=== PATIENT | female | born 1950 | race Caucasian/White ===

== ENCOUNTER → 2016-09-05 | Outpatient (CLI) | payer OTHER ==
[~2016-09-05] MED LIST: AZAT50TA9 PO; CALC500T47 PO; CARI250T9 PO; CHOL10002 PO; HYDR-2440 PO; HYDR200T5 PO; INSU100I17 SC; INSU100I29 SC; LACT1CAP43 PO; MONT10TA6 PO; MULT-26 PO; NEBI5TAB2 PO; NITR0.4T8 SL; NITR50CA11 PO; OMEP20CA9 PO; PREG150C PO; ROSU10TA PO; TRAM50TA2 PO; VALS320T2 PO; ZOLP10TA PO
== END | disposition home or self-care (01) ==
LOC: STAR 10:34
PROVIDERS: ATTEND Orthopaedic Surgery
DX: Z02.9 Encounter for administrative examinations, unspecified (principal)

== ENCOUNTER → 2017-03-06 | Outpatient (CLI) | payer OTHER ==
[~2017-03-06] MED LIST changes: -CALC500T47 PO; +CALC500T51 PO; +NITR0.4T28 SL; -NITR0.4T8 SL
== END | disposition home or self-care (01) ==
LOC: CFH 12:34
PROVIDERS: ATTEND Internal Medicine Cardiovascular Disease
DX: I08.1 Rheumatic disorders of both mitral and tricuspid valves (principal); I10 Essential (primary) hypertension
CPT/HCPCS: 93306

== ENCOUNTER → 2017-05-17 | Outpatient (CLI) | payer OTHER | END | disposition home or self-care (01) | LOC: CFH 12:27 | PROVIDERS: ATTEND Internal Medicine Cardiovascular Disease | DX: I25.10 Atherosclerotic heart disease of native coronary artery without angina pectoris (principal); G89.29 Other chronic pain; Z82.49 Family history of ischemic heart disease and other diseases of the circulatory system | CPT/HCPCS: 75571 ==

== ENCOUNTER 2019-09-16 10:08 | Day surgery (SDC) | payer OTHER ==
[~2019-09-16] VITALS: Ht 160 cm; Wt 70.5 kg
[~2019-09-16 10:08] MED LIST changes: +CHOL200078 PO; +DULO30CA2 PO; +INSU100I43 SC; +IRBE150T9 PO; -NEBI5TAB2 PO; +NEBI5TAB3 PO; -ROSU10TA PO; +ROSU10TA2 PO
[2019-09-16] MEDS ORDERED: LACTATED RINGERS 1,000 ML IV SCH (11:18)
[2019-09-16] MEDS ORDERED: CHLORHEXIDINE 15 ML UDC MM ONE (11:30)
[2019-09-16 11:42] LABS: ALANINE AMINOTRANSFERASE 81 U/L (12-78); ALBUMIN 2.5 g/dL (3.4-5.0); ANION GAP 7 mmol/L (5-15); CALCIUM 9.2 mg/dL (8.5-10.1); CHLORIDE 97 mmol/L (98-107)
[2019-09-16 11:44] LABS: ALKALINE PHOSPHATASE 518 U/L (45-117)
[2019-09-16 12:01] LABS: CREATININE 0.78 mg/dL (0.55-1.02)
[2019-09-16 12:03] LABS: TOTAL PROTEIN 6.7 g/dL (6.4-8.2)
[2019-09-16 12:06] LABS: BILIRUBIN,TOTAL 24.4 mg/dL (0.2-1.0)
[2019-09-16] MEDS ORDERED: SUCCINYLCHOLINE 20 MG/ML, 10ML ONE (13:33)
[2019-09-16] MEDS ORDERED: GLYCOPYRROLATE 0.2MG/1ML, 5ML ONE (13:33)
[2019-09-16] MEDS ORDERED: ROCURONIUM 10 MG/ML,10ML ONE (13:33)
[2019-09-16] MEDS ORDERED: PROPOFOL 10 MG/ML, 20ML ONE (13:33)
[2019-09-16] MEDS ORDERED: EPHEDRINE 50 MG/ML, 1ML ONE (13:33)
[2019-09-16] MEDS ORDERED: ONDANSETRON 2MG/ML, 2ML IV PRN (14:00)
[2019-09-16] MEDS ORDERED: ACETAMINOPHEN 325 MG TABLET PO PRN (14:00)
[2019-09-16] MEDS ORDERED: LORazepam 2 MG/ML, 1ML IVPush PRN (14:00)
[2019-09-16] MEDS ORDERED: hydrALAzine 20 MG/ML, 1ML IV PRN (14:00)
[2019-09-16] MEDS ORDERED: KETOROLAC 30 MG/1 ML IV PRN (14:00)
[2019-09-16] MEDS ORDERED: LABETALOL 5MG/ML, 20ML IV PRN (14:00)
[2019-09-16] MEDS ORDERED: OXYcodone 5 MG/5 ML ORAL.SOL UDC PO PRN (14:00)
[2019-09-16] MEDS ORDERED: FENTANYL PF 100 MCG/2ML IV PRN (14:00)
[2019-09-16] MEDS ORDERED: OMNIPAQUE 350 MG/ML, 50 ML BOTTLE ONE (15:02)
== END 2019-09-16 16:45 | disposition home or self-care (01) ==
LOC: OUT 10:08 → EDSTATUS 13:45 → OUT 16:45
PROVIDERS: ATTEND Internal Medicine
DX: K83.1 Obstruction of bile duct (principal); K86.89 Other specified diseases of pancreas; C25.0 Malignant neoplasm of head of pancreas; E11.9 Type 2 diabetes mellitus without complications; I10 Essential (primary) hypertension; E78.5 Hyperlipidemia, unspecified; M32.9 Systemic lupus erythematosus, unspecified; Z79.4 Long term (current) use of insulin; Z79.899 Other long term (current) drug therapy; Z87.891 Personal history of nicotine dependence; Z88.2 Allergy status to sulfonamides; Z88.5 Allergy status to narcotic agent; Z88.8 Allergy status to other drugs, medicaments and biological substances; Z90.11 Acquired absence of right breast and nipple; Z90.710 Acquired absence of both cervix and uterus; Z96.653 Presence of artificial knee joint, bilateral; Z98.1 Arthrodesis status; Z98.890 Other specified postprocedural states
CPT/HCPCS: 43242; 43274; 74328; 80053; 82962; 88112; 88172; 88173; 88307; 93005; C1769; C1894; C2625; J0330; J2704; J7120; Q9967

== ENCOUNTER 2019-10-01 16:31 | Outpatient (CLI) | payer OTHER ==
[2019-10-01] MEDS ORDERED: OMNIPAQUE 350 MG/ML, 100ML BOTTLE ONE (17:10)
[2019-10-02] MEDS ORDERED: LOVA10TA PO (13:56)
== END 2019-10-01 23:59 | disposition home or self-care (01) ==
LOC: RAD 16:31
PROVIDERS: ATTEND Surgery
DX: C25.0 Malignant neoplasm of head of pancreas (principal); R91.8 Other nonspecific abnormal finding of lung field
CPT/HCPCS: 74170; Q9967

== ENCOUNTER 2019-10-02 13:08 | Outpatient (CLI) | payer OTHER ==
[2019-10-02] MEDS ORDERED: LOVA10TA PO (13:56)
[2019-10-02 14:21] LABS: ALANINE AMINOTRANSFERASE 52 U/L (12-78); ALBUMIN 2.2 g/dL (3.4-5.0); ANION GAP 6 mmol/L (5-15); CALCIUM 9.2 mg/dL (8.5-10.1); CHLORIDE 95 mmol/L (98-107); CREATININE 0.88 mg/dL (0.55-1.02)
[2019-10-02 14:24] LABS: ALKALINE PHOSPHATASE 625 U/L (45-117); BILIRUBIN,TOTAL 12.5 mg/dL (0.2-1.0); TOTAL PROTEIN 6.6 g/dL (6.4-8.2)
== END 2019-10-02 23:59 | disposition home or self-care (01) ==
LOC: STAR 13:08
PROVIDERS: ATTEND Internal Medicine
DX: Z01.818 Encounter for other preprocedural examination (principal); C25.9 Malignant neoplasm of pancreas, unspecified
CPT/HCPCS: 36415; 80053; U0001

== ENCOUNTER 2019-10-07 09:10 | Day surgery (SDC) | payer OTHER ==
[~2019-10-07] VITALS: Ht 154.9 cm; Wt 70.9 kg
[~2019-10-07 09:10] MED LIST changes: +LOVA10TA PO; +PROPOFOL 10 MG/ML, 20ML ONE; +ROCURONIUM 10 MG/ML,10ML ONE; +SUCCINYLCHOLINE 20 MG/ML, 10ML ONE
[2019-10-07 09:26] VITALS: BP 150/85
[2019-10-07] MEDS ORDERED: LACTATED RINGERS 1,000 ML IV SCH (09:37)
[2019-10-07] MEDS ORDERED: CHLORHEXIDINE 15 ML UDC ONE (09:42)
[2019-10-07] MEDS ORDERED: PROPOFOL 50 ML ONE (11:38)
[2019-10-07] MEDS ORDERED: FENTANYL PF 100 MCG/2ML ONE (11:38)
[2019-10-07] MEDS ORDERED: GLUCAGON 1 MG ONE (11:57)
[2019-10-07] MEDS ORDERED: ONDANSETRON ODT 8 MG PO PRN (12:30)
[2019-10-07] MEDS ORDERED: LABETALOL 5MG/ML, 20ML IV PRN (12:30)
[2019-10-07] MEDS ORDERED: FENTANYL PF 100 MCG/2ML IV PRN (12:30)
[2019-10-07] MEDS ORDERED: DIPHENHYDRAMINE 50 MG/ML, 1ML IVPush PRN (12:30)
[2019-10-07] MEDS ORDERED: EPHEDRINE 50 MG/ML, 1ML IM PRN (12:30)
[2019-10-07] MEDS ORDERED: PROMETHAZINE 25 MG/ML, 1ML IV PRN (12:30)
[2019-10-07] MEDS ORDERED: ONDANSETRON 2MG/ML, 2ML IV PRN (12:30)
[2019-10-07] MEDS ORDERED: EPHEDRINE 50 MG/ML, 1ML IVPush PRN (12:30)
== END 2019-10-07 13:35 | disposition home or self-care (01) ==
LOC: OUT 09:10
PROVIDERS: ATTEND Internal Medicine
DX: T85.590A Other mechanical complication of bile duct prosthesis, initial encounter (principal); C25.9 Malignant neoplasm of pancreas, unspecified; E11.9 Type 2 diabetes mellitus without complications; I10 Essential (primary) hypertension; M32.9 Systemic lupus erythematosus, unspecified; Z79.4 Long term (current) use of insulin; Z79.899 Other long term (current) drug therapy; Z88.0 Allergy status to penicillin; Z88.5 Allergy status to narcotic agent; Z96.653 Presence of artificial knee joint, bilateral; Z98.1 Arthrodesis status; Z90.11 Acquired absence of right breast and nipple; Z90.710 Acquired absence of both cervix and uterus; Z90.5 Acquired absence of kidney; Z98.890 Other specified postprocedural states; Y83.8 Other surgical procedures as the cause of abnormal reaction of the patient, or of later complication, without mention of misadventure at the time of the procedure
CPT/HCPCS: 43276; 74328; 82962; C1769; C1894; C2625; J0330; J1610; J2704; J3010; J7120

== ENCOUNTER → 2019-10-16 | Outpatient (CLI) | payer OTHER ==
[~2019-10-16] MED LIST changes: -PROPOFOL 10 MG/ML, 20ML ONE; -ROCURONIUM 10 MG/ML,10ML ONE; -SUCCINYLCHOLINE 20 MG/ML, 10ML ONE
== END | disposition home or self-care (01) ==
LOC: PETCFH 08:32
PROVIDERS: ATTEND Surgery
DX: C25.0 Malignant neoplasm of head of pancreas (principal); R91.8 Other nonspecific abnormal finding of lung field
CPT/HCPCS: 78815; A9552

== ENCOUNTER 2019-10-17 08:45 | Outpatient (CLI) | payer OTHER | END 2019-10-17 23:59 | disposition home or self-care (01) | LOC: ROC 08:45 | PROVIDERS: ATTEND Radiology Radiation Oncology | DX: Z08 Encounter for follow-up examination after completed treatment for malignant neoplasm (principal); Z85.3 Personal history of malignant neoplasm of breast; C25.9 Malignant neoplasm of pancreas, unspecified; I10 Essential (primary) hypertension; E78.5 Hyperlipidemia, unspecified; Z90.710 Acquired absence of both cervix and uterus; Z79.891 Long term (current) use of opiate analgesic; Z79.4 Long term (current) use of insulin; Z98.890 Other specified postprocedural states; Z87.891 Personal history of nicotine dependence; E11.9 Type 2 diabetes mellitus without complications | CPT/HCPCS: 99213; G0463 ==

== ENCOUNTER 2019-10-30 08:18 | Day surgery (SDC) | payer OTHER ==
[~2019-10-30] VITALS: Ht 154.9 cm; Wt 64.8 kg
[2019-10-30 08:39] VITALS: BP 105/65
[2019-10-30] MEDS ORDERED: SODIUM CHLORIDE 0.9% 1,000 ML IV SCH ×2 (09:00→09:15)
[2019-10-30] MEDS ORDERED: GABA300C PO (09:01)
[2019-10-30] MEDS ORDERED: FLUMAZENIL 0.1 MG/1 ML, 5ML ONE (09:18)
[2019-10-30] MEDS ORDERED: FENTANYL PF 100 MCG/2ML ONE (09:18)
[2019-10-30] MEDS ORDERED: NALOXONE 1 MG/ML, 2ML ONE (09:18)
[2019-10-30] MEDS ORDERED: MIDAZOLAM 1 MG/ML, 5ML ONE (09:18)
== END 2019-10-30 12:55 | disposition home or self-care (01) ==
LOC: OUT 08:18
PROVIDERS: ATTEND Radiology Radiation Oncology
DX: R91.1 Solitary pulmonary nodule (principal); D02.21 Carcinoma in situ of right bronchus and lung; C25.9 Malignant neoplasm of pancreas, unspecified; I10 Essential (primary) hypertension; E11.9 Type 2 diabetes mellitus without complications; E78.5 Hyperlipidemia, unspecified; Z79.891 Long term (current) use of opiate analgesic; Z79.899 Other long term (current) drug therapy; Z85.3 Personal history of malignant neoplasm of breast; Z87.891 Personal history of nicotine dependence; Z88.2 Allergy status to sulfonamides; Z88.5 Allergy status to narcotic agent; Z88.8 Allergy status to other drugs, medicaments and biological substances; Z91.040 Latex allergy status; Z90.5 Acquired absence of kidney; Z92.3 Personal history of irradiation; Z96.653 Presence of artificial knee joint, bilateral; Z90.710 Acquired absence of both cervix and uterus; Z98.1 Arthrodesis status; Z98.890 Other specified postprocedural states; Z80.9 Family history of malignant neoplasm, unspecified; Z81.8 Family history of other mental and behavioral disorders
CPT/HCPCS: 32405; 71045; 77012; 88305; 88333; 99156; 99157; J2250; J3010; J7030; J2310

== ENCOUNTER 2019-11-10 10:39 | Day surgery (SDC) | payer OTHER ==
[~2019-11-10] VITALS: Ht 154.9 cm; Wt 64.7 kg
[~2019-11-10 10:39] MED LIST changes: +GABA300C PO
[2019-11-10] MEDS ORDERED: CEFAZOLIN PMX 1GM/50ML 50 ML IV ONE (11:05)
[2019-11-10 11:09] VITALS: BP 122/74
[2019-11-10] MEDS ORDERED: CEFAZOLIN PMX 1GM/50ML 50 ML ONE (11:14)
[2019-11-10] MEDS ORDERED: SODIUM CHLORIDE 0.9% 1,000 ML IV ONE (11:19)
[2019-11-10] MEDS ORDERED: LIDOCAINE 1%, 20ML ONE (11:55)
[2019-11-10] MEDS ORDERED: FLUMAZENIL 0.1 MG/1 ML, 5ML ONE (12:30)
[2019-11-10] MEDS ORDERED: MIDAZOLAM 1 MG/ML, 5ML ONE ×2 (12:30)
[2019-11-10] MEDS ORDERED: FENTANYL PF 100 MCG/2ML ONE (12:30)
[2019-11-10] MEDS ORDERED: NALOXONE 1 MG/ML, 2ML ONE (12:31)
== END 2019-11-10 15:40 | disposition home or self-care (01) ==
LOC: OUT 10:39
PROVIDERS: ATTEND Specialist
DX: C25.0 Malignant neoplasm of head of pancreas (principal); I10 Essential (primary) hypertension; E11.42 Type 2 diabetes mellitus with diabetic polyneuropathy; E78.5 Hyperlipidemia, unspecified; I25.10 Atherosclerotic heart disease of native coronary artery without angina pectoris; Z79.899 Other long term (current) drug therapy; Z87.891 Personal history of nicotine dependence; Z88.2 Allergy status to sulfonamides; Z91.040 Latex allergy status; Z90.5 Acquired absence of kidney; Z85.3 Personal history of malignant neoplasm of breast; Z90.710 Acquired absence of both cervix and uterus; Z96.653 Presence of artificial knee joint, bilateral; Z98.1 Arthrodesis status; Z98.890 Other specified postprocedural states; Z80.9 Family history of malignant neoplasm, unspecified
CPT/HCPCS: 36561; 76937; 77001; 99156; 99157; C1788; J0690; J1642; J2250; J3010; J7030; J2310

== ENCOUNTER → 2019-11-27 | Outpatient (CLI) | payer OTHER | END | disposition home or self-care (01) | LOC: CFH 07:30 | PROVIDERS: ATTEND Specialist | DX: C80.1 Malignant (primary) neoplasm, unspecified (principal); K86.89 Other specified diseases of pancreas; R16.1 Splenomegaly, not elsewhere classified | CPT/HCPCS: 76705 ==

== ENCOUNTER 2019-12-02 05:58 | Day surgery (SDC) | payer OTHER ==
[~2019-12-02] VITALS: Ht 154.9 cm; Wt 65.0 kg
[2019-12-02] MEDS ORDERED: LACTATED RINGERS 1,000 ML IV SCH (06:36)
[2019-12-02 06:47] VITALS: BP 149/79
[2019-12-02] MEDS ORDERED: CHLORHEXIDINE 15 ML UDC MM ONE (07:00)
[2019-12-02] MEDS ORDERED: ONDANSETRON 2MG/ML, 2ML IVPush PRN (07:30)
[2019-12-02] MEDS ORDERED: OMNIPAQUE 350 MG/ML, 50 ML BOTTLE ONE (07:30)
[2019-12-02] MEDS ORDERED: OXYcodone 5 MG/5 ML ORAL.SOL UDC PO PRN (07:30)
[2019-12-02] MEDS ORDERED: DIAZEPAM 5 MG/ML, 2ML IVPush PRN (07:30)
[2019-12-02] MEDS ORDERED: HYDROmorphone 1 MG/ML, 1ML INJ IVPush PRN (07:30)
[2019-12-02] MEDS ORDERED: MEPERIDINE/PF 25MG/0.5ML IVPush PRN (07:30)
[2019-12-02] MEDS ORDERED: ACETAMINOPHEN 325 MG TABLET PO PRN (07:30)
[2019-12-02] MEDS ORDERED: FENTANYL PF 100 MCG/2ML IV PRN (07:30)
[2019-12-02] MEDS ORDERED: FENTANYL PF 100 MCG/2ML ONE (07:34)
[2019-12-02] MEDS ORDERED: PROPOFOL 50 ML ONE (07:35)
[2019-12-02] MEDS ORDERED: SUCCINYLCHOLINE 20 MG/ML, 10ML ONE (07:50)
[2019-12-02] MEDS ORDERED: ROCURONIUM 10 MG/ML,10ML ONE (07:50)
== END 2019-12-02 10:00 | disposition home or self-care (01) ==
LOC: OUT 05:58
PROVIDERS: ATTEND Internal Medicine
DX: Z46.59 Encounter for fitting and adjustment of other gastrointestinal appliance and device (principal); Z11.59 Encounter for screening for other viral diseases; C25.9 Malignant neoplasm of pancreas, unspecified; K83.1 Obstruction of bile duct; M32.9 Systemic lupus erythematosus, unspecified; Z79.899 Other long term (current) drug therapy; Z88.2 Allergy status to sulfonamides; Z91.040 Latex allergy status
CPT/HCPCS: 36415; 43276; 74328; 82962; 87635; C2625; J0330; J2704; J3010; J7120; Q9967

== ENCOUNTER → 2020-02-10 | Outpatient (CLI) | payer OTHER ==
[~2020-02-10] MED LIST changes: +OMNIPAQUE 350 MG/ML, 100ML BOTTLE ONE
== END | disposition home or self-care (01) ==
LOC: CFH 14:11
PROVIDERS: ATTEND Internal Medicine Hematology & Oncology
DX: C78.00 Secondary malignant neoplasm of unspecified lung (principal); C80.1 Malignant (primary) neoplasm, unspecified; R91.8 Other nonspecific abnormal finding of lung field; K86.89 Other specified diseases of pancreas
CPT/HCPCS: 71260; 74170; Q9967

== ENCOUNTER 2020-02-23 06:52 | Day surgery (SDC) | payer OTHER ==
[~2020-02-23] VITALS: Ht 160 cm; Wt 68.7 kg
[~2020-02-23 06:52] MED LIST changes: -OMNIPAQUE 350 MG/ML, 100ML BOTTLE ONE
[2020-02-23 07:34] VITALS: BP 129/78
[2020-02-23] MEDS ORDERED: SODIUM CHLORIDE 0.9% 1,000 ML IV SCH (08:00)
[2020-02-23] MEDS ORDERED: MIDAZOLAM 1 MG/ML, 5ML ONE (09:03)
[2020-02-23] MEDS ORDERED: FLUMAZENIL 0.1 MG/1 ML, 5ML ONE (09:03)
[2020-02-23] MEDS ORDERED: FENTANYL PF 100 MCG/2ML ONE (09:03)
[2020-02-23] MEDS ORDERED: NALOXONE 1 MG/ML, 2ML ONE (09:03)
== END 2020-02-23 11:45 | disposition home or self-care (01) ==
LOC: OUT 06:52
PROVIDERS: ATTEND Specialist
DX: R91.1 Solitary pulmonary nodule (principal); J18.9 Pneumonia, unspecified organism; C50.919 Malignant neoplasm of unspecified site of unspecified female breast; C25.0 Malignant neoplasm of head of pancreas; I10 Essential (primary) hypertension; E11.9 Type 2 diabetes mellitus without complications; F10.99 Alcohol use, unspecified with unspecified alcohol-induced disorder; G62.9 Polyneuropathy, unspecified; Z79.899 Other long term (current) drug therapy; Z87.891 Personal history of nicotine dependence; Z88.2 Allergy status to sulfonamides
CPT/HCPCS: 32405; 71045; 77012; 88305; 88333; 99156; 99157; J2250; J3010; J7030; J2310

== ENCOUNTER → 2020-04-23 | Outpatient (CLI) | payer OTHER ==
[~2020-04-23] MED LIST changes: -HYDR-2440 PO; +HYDR-3569 PO
== END | disposition home or self-care (01) ==
LOC: ROC 07:35
PROVIDERS: ATTEND Radiology Radiation Oncology
DX: C25.0 Malignant neoplasm of head of pancreas (principal); E11.9 Type 2 diabetes mellitus without complications; I10 Essential (primary) hypertension; Z87.891 Personal history of nicotine dependence; Z79.899 Other long term (current) drug therapy; Z85.3 Personal history of malignant neoplasm of breast
CPT/HCPCS: 99213; G0463

== ENCOUNTER 2020-07-30 07:31 | Outpatient (CLI) | payer OTHER | END 2020-07-30 23:59 | disposition home or self-care (01) | LOC: ROC 07:31 | PROVIDERS: ATTEND Radiology Radiation Oncology | DX: Z08 Encounter for follow-up examination after completed treatment for malignant neoplasm (principal); Z85.07 Personal history of malignant neoplasm of pancreas; E11.9 Type 2 diabetes mellitus without complications; I10 Essential (primary) hypertension; Z79.899 Other long term (current) drug therapy; Z87.891 Personal history of nicotine dependence | CPT/HCPCS: 99212; G0463 ==